=== PATIENT | male | born 1960 | race Caucasian/White ===

== ENCOUNTER 2019-11-26 09:05 | Emergency (ER) | payer OTHER, SELFPAY ==
[2019-11-26 09:08] VITALS: BP 163/102; PULSE 71; TEMP 36.5; O2SAT 95
--- NOTE | 2019-11-26 09:16 | ED.GENADUL_ITS ---
Discharge Plan Disposition Patient Disposition: HOME Condition: Stable Discharge Details Chief Complaint: Laceration Clinical Impression: Avulsion of finger tip Primary Care Provider: Norberto Delgado ED Provider: Mabel Byrnes Discharge Instructions Instructions: Abrasion (ED) Additional Instructions: Leave dressing in place for 12 to 24 hours. No soaking. May wash wound under running soap and water daily. Allow to dry. Keep clean and covered when working outside. Return to the ED or be seen sooner if any signs of infection, red streaks, uncontrolled bleeding or any concerns. May take Tylenol or ibuprofen as needed for pain and swelling. Referrals: Norberto Delgado. [Primary Care Provider] - Medical Decision Making 59-year-old male presents with right index finger avulsion approximately 45 minutes prior to arrival. He reports finger was scraped by some truck chain. He reports pain 9 out of 10. Finger was not crushed. He does have full range of motion distal sensation intact. He is not on any blood thinners. There is a small venous ooze noted. Last tetanus shot was 2015. Patient has a lateral index finger avulsion. Nonsuturable at this time. We will place Surgicel do some wound care and a pressure dressing. Patient instructed on home care to return if bleeding soaks through the gauze. 0932: Surgicel dressing applied, nonadherent dressing 4 x 4's and Coban. Patient instructed to leave in place for 12 to 24 hours and then may wash finger under running soap and water. Discussed to return if any bleeding which does not stop within 15 minutes. Discussed wound care, patient verbalized understanding. This text was generated using [employer] system, please disregard any oddities of phrase or misspellings. HPI General Mode of arrival: ambulatory . Date/Time Provider Initiated Documentation: 11/26/19 09:06 . Limitations to Documentation: no limitations . Information obtained by: patient . HPI Narrative: 59-year-old male presents with right index finger avulsion approximately 45 minutes prior to arrival. He reports finger was scraped by some truck chain. He reports pain 9 out of 10. Finger was not crushed. He does have full range of motion distal sensation intact. He is not on any blood thinners. There is a small venous ooze noted. Last tetanus shot was 2015. Related Data Allergies Allergy/AdvReac Type Severity Reaction Status Date / Time No Known Allergies Allergy Unverified 11/26/19 09:11 General Stated Complaint: Laceration MARISOL: 4 Review of Systems Narrative: Constitutional: Negative for weight loss, alert and oriented, well groomed, normal body habitus, appears comfortable. HEENT: Denies trauma, headaches, blurry vision, nasal discharge, sore throat, trouble swallowing. Chest: Denies chest pain, palpitations, irregular rhythm, hypertension. Respiratory: Denies Shortness of breath, cough, hemoptysis. Extremities: Has a laceration/avulsion noted to his right index finger. Neuro: Denies dizziness, blurry vision, weakness, syncope, headache or facial numbness. Hematologic: Denies easy bruising, intolerance to heat or cold, hair loss. FORMERLY [facility], [facility]–1983 Family History Mother No problems noted. Father Personal history of malignant neoplasm SKIN Sister Essential hypertension Grandfather Graves disease Grandfather No problems noted. Grandmother No problems noted. Grandmother No problems noted. Social History Smoking/Tobacco Use Status: Former Tobacco Use Drug use: Never Do you feel safe at home: Yes Do you feel safe in your relationship?: Yes Exam Const General: cooperative, healthy appearing, comfortable, no acute distress, well developed and well groomed Nutritional Appearance: average body habitus Orientation: alert, awake and oriented x3 Skin General skin exam: no rashes or lesions noted Trauma: abrasion (Right index finger. Lateral aspect of the distal tip avulsion. ) Hair: normal Nails: normal Other: Small venous ooze noted. Distal sensation intact full range of motion to the digit. Course Vital Signs Vital signs: Vital Signs Temperature 36.5 C 11/26/19 09:08 Pulse 71 11/26/19 09:08 Blood Pressure 163/102 H 11/26/19 09:08 Pulse Oximetry 95 11/26/19 09:08 Temperature 36.5 C 11/26/19 09:08 Temperature Source Temporal Artery Scan 11/26/19 09:08 Pulse 71 11/26/19 09:08 Respiratory Effort Non-Labored 11/26/19 09:10 Blood Pressure 163/102 H 11/26/19 09:08 Blood Pressure Position Sitting 11/26/19 09:08 Pulse Oximetry 95 11/26/19 09:08 Oxygen Delivery Method Room Air 11/26/19 09:08 Oxygen Flow Rate 0 11/26/19 09:08 Pain Level 5 11/26/19 09:13
[2019-11-26] MEDS: Cellulose,Oxidized 2X3 PKT 1 EACH MC (09:25)
== END 2019-11-26 09:45 | disposition home or self-care (01) ==
PROVIDERS: Emergency Provider Registered Nurse Emergency; PCP Family Medicine
DX: S61.200A Unspecified open wound of right index finger without damage to nail, initial encounter (principal); W23.1XXA Caught, crushed, jammed, or pinched between stationary objects, initial encounter
CPT/HCPCS: 99282

== ENCOUNTER 2020-07-06 11:03 | Outpatient (CLI) | payer BC, SELFPAY ==
--- NOTE | 2020-07-06 10:45 | DI.RAD_ITS ---
EXAM: XR KNEE RT 2V AP,LAT CLINICAL HISTORY: R knee pain. TECHNIQUE: 2D digital imaging was performed. COMPARISON: CR LEFT KNEE LIMITED 1 OR 2 VIEWS from 06/30/2015 FINDINGS: There is no evidence of fracture on this limited two view study but there is a joint effusion seen in suprapatellar bursa. There is moderate narrowing of the medial compartment evident. No marginal os teophytes seen. IMPRESSION: Degenerative changes in the medial compartment. No fracture but there is a joint effusion noted whic h may signify an internal derangement. DATA REPOSITORY: RADIATION DOSE DELIVERED:
== END 2020-07-06 11:23 ==
PROVIDERS: PCP Family Medicine; Referring Provider Family Medicine; Visit Provider Physician Assistant
DX: M17.11 Unilateral primary osteoarthritis, right knee (principal); M25.461 Effusion, right knee
CPT/HCPCS: 73560

== ENCOUNTER 2020-08-26 01:56 | Outpatient (CLI) | payer BC, SELFPAY ==
[2020-08-26 17:03] LABS: Calculated LDL 129 mg/dL (<100); Cholesterol 230 mg/dL (<200); Glucose 106 mg/dL (74-106); HDL Cholesterol 45 mg/dL (40-60); Triglyceride 280 mg/dL (<150)
[2020-08-29 09:19] LABS: PSA, Screening 0.4 ng/mL (0.0-4.5)
== END 2020-08-26 02:16 ==
PROVIDERS: PCP Family Medicine; Visit Provider Family Medicine
DX: R73.9 Hyperglycemia, unspecified (principal); E78.5 Hyperlipidemia, unspecified; Z12.5 Encounter for screening for malignant neoplasm of prostate
CPT/HCPCS: 36415; 80061; 82947; 84153

== ENCOUNTER 2021-12-20 10:28 | Outpatient (REF) | payer BC, SELFPAY ==
[2021-12-21 17:57] LABS: COVID-19 RT-PCR UVMMC Result Positive (Negative)
== END 2021-12-20 10:29 | disposition home or self-care (01) ==
LOC: LBN 10:28
PROVIDERS: PCP Family Medicine; Visit Provider Physician Assistant
DX: Z20.822 Contact with and (suspected) exposure to COVID-19 (principal)
CPT/HCPCS: U0003